=== PATIENT | male | born 1995 | race Caucasian/White ===

== ENCOUNTER 2017-07-18 18:33 | Emergency (ER) | payer OTHER ==
[~2017-07-18 18:33] MED LIST: BUPR-472 PO; TEMA-55 PO
--- NOTE | 2017-07-18 18:44 | ER Report ---
History and Physical Time Seen By MD: 18:44 Hx. of Stated Complaint: cut finger with copper wire short time ago, bleeding controlled, flap lac HPI/ROS CHIEF COMPLAINT: Finger laceration HISTORY OF PRESENT ILLNESS: 21-year-old male patient presents to emergency room with complaint of laceration to the left index finger. Patient states that he was installing a stereo system. He cut his finger with a copper wire. Patient denies any numbness tingling. Denies any difficulty with movement. Patient states his last tetanus shot was in 2015. Allergies: Coded Allergies: No Known Drug Allergies (Unverified , 07/18/17) Home Meds Active Scripts Cephalexin 500 Mg Tab (KEFLEX 500 MG TAB) 500 Mg Tablet, 500 MG PO Q6H, #20 TAB Prov:JASON BEE [employer] 07/18/17 Reported Medications Temazepam (TEMAZEPAM) 30 Mg Capsule, 30 MG PO QHS, CAPSULE 03/02/17 Bupropion Hcl (WELLBUTRIN XL) 150 Mg Tab.er.24h, 150 MG PO QDAY, TAB 03/02/17 Past Medical/Surgical History Patient has a past medical history of migraines, depression. Patient has surgical history of tonsillectomy. Reviewed Nurses Notes: Yes Hx Substance Use Disorder: No Hx Alcohol Use: No Constitutional Vital Sign - Last 24 Hours 07/18/17 07/18/17 07/18/17 07/18/17 18:33 18:35 18:36 18:45 Temp 98.3 Pulse ??? 74 Resp 20 B/P (MAP) 139/82 (101) 139/82 122/102 (109) Pulse Ox 97 O2 Delivery Room Air 07/18/17 07/18/17 07/18/17 19:00 19:03 19:15 Pulse 76 77 B/P (MAP) 121/69 (86) 128/71 (90) Pulse Ox 94 95 Physical Exam General appearance: Alert no distress. Respiratory: Chest is non tender, lungs are clear to auscultation. Cardiac: Regular rate and rhythm. Skin: Patient has a one similar laceration to the pad of the left index finger. Patient has good strength, does appear to go into the subcutaneous tissue. DIFFERENTIAL DIAGNOSIS: After history and physical exam differential diagnosis was considered for laceration. Medical Decision Making ED Course/Re-evaluation ED Course Patient is admitted to and examined, history and physical were obtained. Differential diagnoses were considered. I examination patient has a one similar laceration to the left index finger. The area was anesthetized, cleaned and repaired described below. Care instructions were given with patient. We will go ahead and discharge patient home at this time. He is to follow-up with his primary care provider in 7 days to have the sutures removed. Patient verbalized understanding and agreement with plan. Procedure: Laceration repair. Verbal consent was obtained from the patient. The 1 cm laceration on the left index finger was anesthetized in the usual fashion. The wound was scrubbed, draped and explored to its base with a gloved finger. There were no deep structures involved. No tendon injury was identified. The wound was repaired with 4 simple interrupted sutures using 4-0 Ethilon material. The wound repair was simple. The procedure was performed by myself. Decision to Disposition Date: Jul 18, 2017 Decision to Disposition Time: 19:24 Depart Departure Latest Vital Signs Vital Signs Date Time Temp Pulse Resp B/P (MAP) Pulse Ox O2 Delivery O2 Flow Rate FiO2 07/18/17 19:15 77 128/71 (90) 95 07/18/17 18:36 98.3 20 Room Air Impression: Primary Impression: Laceration Condition: Improved Disposition: HOME OR SELF-CARE New Scripts Cephalexin 500 Mg Tab (KEFLEX 500 MG TAB) 500 Mg Tablet 500 MG PO Q6H, #20 TAB Prov: JASON BEE 07/18/17 Patient Instructions: Finger Laceration (ED) Additional Instructions: Keep wound dry for 48 hours. Follow up with your primary care provider in the next 7-10 days to have sutures removed. Monitor for signs of infection; redness, swelling, heat, discharge, increasing pain or red streaking. Take Tylenol or Ibuprofen as needed for pain. Return to the ER with any concerns. You may change dressing as needed. JASON BEE Jul 18, 2017 18:44
[2017-07-18 19:15] VITALS: BP 128/71
[2017-07-18] MEDS ORDERED: CEPH500T7 PO (19:24)
== END 2017-07-18 19:32 | disposition home or self-care (01) ==
LOC: ER 18:51
DX: S61.211A Laceration without foreign body of left index finger without damage to nail, initial encounter (principal)
CPT/HCPCS: 99282

== ENCOUNTER 2017-07-21 17:50 | Emergency (ER) | payer OTHER ==
[~2017-07-21 17:50] MED LIST changes: +CEPH500T7 PO
--- NOTE | 2017-07-21 18:00 | ER Report ---
History and Physical Time Seen By MD: 17:59 Hx. of Stated Complaint: Stitches here a couple of days ago. Pain worse. Bleeding off and on. Stitches intact. No bleeding noted at this time. HPI/ROS CHIEF COMPLAINT: Finger pain HISTORY OF PRESENT ILLNESS: 21-year-old male patient presents to the emergency room with complaint of left index finger pain. Patient was seen here in the emergency room 2 days ago and had sutures placed at that time. Patient states that he has been having swelling, increasing pain to the finger. He states he is taken ibuprofen for this with no improvement. Patient denies having any fevers or chills. Patient denies having any drainage, although he states that he has had some blood. Patient states he's been taking his Keflex as prescribed. Allergies: Coded Allergies: No Known Drug Allergies (Unverified , 07/21/17) Home Meds Active Scripts Diclofenac Sodium (DICLOFENAC SODIUM) 75 Mg Tablet.dr, 75 MG PO BID, #19 TAB Prov:JASON BEE 07/21/17 Sulfamethoxazole/Trimet 800-160 Mg Tab (BACTRIM DS TABLET) 1 Each Tablet, 1 TAB PO Q12H, #12 TAB Prov:JASON BEEP 07/21/17 Cephalexin 500 Mg Tab (KEFLEX 500 MG TAB) 500 Mg Tablet, 500 MG PO Q6H, #20 TAB Prov:JASON BEEP 07/18/17 Reported Medications Temazepam (TEMAZEPAM) 30 Mg Capsule, 30 MG PO QHS, CAPSULE 03/02/17 Bupropion Hcl (WELLBUTRIN XL) 150 Mg Tab.er.24h, 150 MG PO QDAY, TAB 03/02/17 Past Medical/Surgical History Patient has a past medical history of migraines, depression. Patient has a surgical history of tonsillectomy. Reviewed Nurses Notes: Yes Hx Substance Use Disorder: No Hx Alcohol Use: No Constitutional Vital Sign - Last 24 Hours 07/21/17 07/21/17 17:55 18:35 Temp 98.7 Pulse 112 95 Resp 16 16 B/P (MAP) 126/80 115/59 (77) Pulse Ox 95 95 O2 Delivery Room Air Physical Exam General appearance: Alert no distress. Respiratory: Chest is non tender, lungs are clear to auscultation. Cardiac: Regular rate and rhythm. Skin: Patient has mild erythema to the tip of the left index finger, tender to touch, there is no purulent drainage, is no erythema around the wound. DIFFERENTIAL DIAGNOSIS: After history and physical exam differential diagnosis was considered for cellulitis, wound infection. Medical Decision Making ED Course/Re-evaluation ED Course Patient was admitted exam room, history and physical were obtained. Differential diagnoses were considered. On examination patient has tenderness to the left index finger, there is mild erythema. Is not warm to the touch. A digital block was performed to alleviate some discomfort, using 2.5 cc of 1% lidocaine and 2.5 cc of 0.5% Marcaine. Patient states he had significant improvement in his discomfort. Due to the likelihood of an infection we will go ahead and change the antibiotics to Bactrim, one tab twice a day for 7 days. I discussed with patient who verbalized understanding and agreement. Patient is to follow-up in 5-8 days to have sutures removed. Patient is return if condition worsens. Decision to Disposition Date: Jul 21, 2017 Decision to Disposition Time: 18:26 Depart Departure Latest Vital Signs Vital Signs Date Time Temp Pulse Resp B/P (MAP) Pulse Ox O2 Delivery O2 Flow Rate FiO2 07/21/17 18:35 95 16 115/59 (77) 95 07/21/17 17:55 98.7 Room Air Impression: Primary Impression: Finger infection Condition: Improved Disposition: HOME OR SELF-CARE New Scripts Diclofenac Sodium (DICLOFENAC SODIUM) 75 Mg Tablet. 75 MG PO BID, #19 TAB Prov: JASON BEE 07/21/17 Sulfamethoxazole/Trimet 800-160 Mg Tab (BACTRIM DS TABLET) 1 Each Tablet 1 TAB PO Q12H, #12 TAB Prov: JASON BEE 07/21/17 Patient Instructions: Wound Infection (ED) Additional Instructions: Take the new antibiotics as directed. Stop taking the Keflex. Limit activity by pain. Take the Diclofenac as needed for pain. You may take Tylenol as needed for pain, but no Ibuprofen or Aleve. Return to the ER if condition worsens. Follow up with your primary care provider to have the sutures removed as previously directed. JASON BEE Jul 21, 2017 18:00
[2017-07-21] MEDS ORDERED: DICLOFENAC SOD 75 MG TABCR PO ONE (18:05)
[2017-07-21] MEDS ORDERED: TRIMETHOPRIM/SULFA 160-800 TH 2 TAB/BOTTLE PO ONE (18:15)
[2017-07-21] MEDS ORDERED: SULF-198 PO (18:23)
[2017-07-21] MEDS ORDERED: DICL-195 PO (18:23)
[2017-07-21 18:35] VITALS: BP 115/59
== END 2017-07-21 18:37 | disposition home or self-care (01) ==
LOC: ER 17:54
DX: L08.9 Local infection of the skin and subcutaneous tissue, unspecified (principal)
CPT/HCPCS: 99282

== ENCOUNTER 2017-07-30 16:49 | Emergency (ER) | payer OTHER ==
[~2017-07-30 16:49] MED LIST changes: +DICL-195 PO; +SULF-198 PO
[2017-07-30 16:52] VITALS: BP 130/76
--- NOTE | 2017-07-30 17:26 | ER Report ---
History and Physical Time Seen By MD: 16:52 Hx. of Stated Complaint: Here for suture removal HPI/ROS CHIEF COMPLAINT: Suture removal HISTORY OF PRESENT ILLNESS: 21-year-old male presents with 4 sutures in left index finger placed 9-10 days ago here denies pain redness discharge or dehiscence or other problems. He is here for suture removal. No other concerns or complaints today. REVIEW OF SYSTEMS: Respiratory: No cough, no dyspnea. Cardiovascular: No chest pain, no palpitations. Gastrointestinal: No vomiting, no abdominal pain. Musculoskeletal: No back pain. Allergies: Coded Allergies: No Known Drug Allergies (Unverified , 07/30/17) Home Meds Active Scripts Diclofenac Sodium (DICLOFENAC SODIUM) 75 Mg Tablet.dr, 75 MG PO BID, #19 TAB Prov:JASON BEE [facility] 07/21/17 Sulfamethoxazole/Trimet 800-160 Mg Tab (BACTRIM DS TABLET) 1 Each Tablet, 1 TAB PO Q12H, #12 TAB Prov:JASON BEE [facility] 07/21/17 Reported Medications Temazepam (TEMAZEPAM) 30 Mg Capsule, 30 MG PO QHS, CAPSULE 03/02/17 Bupropion Hcl (WELLBUTRIN XL) 150 Mg Tab.er.24h, 150 MG PO QDAY, TAB 03/02/17 Discontinued Scripts Cephalexin 500 Mg Tab (KEFLEX 500 MG TAB) 500 Mg Tablet, 500 MG PO Q6H, #20 TAB Prov:KUSUM BEEE [facility] 07/18/17 Hx Substance Use Disorder: No Hx Alcohol Use: No Constitutional Vital Sign - Last 24 Hours 07/30/17 16:52 Temp 98.3 Pulse 76 Resp 16 B/P (MAP) 130/76 Pulse Ox 96 O2 Delivery Room Air Physical Exam General Appearance: The patient is alert, has no immediate need for airway protection and no current signs of toxicity. No acute distress Eyes: Pupils equal and round no injection. Respiratory: Chest is non tender, lungs are clear to auscultation. Cardiac: regular rate and rhythm [ ] Gastrointestinal: Abdomen is soft and non tender, no masses, bowel sounds normal. Musculoskeletal: Neck: Neck is supple and non tender. Extremities have full range of motion and are non tender. Skin: No rashes or lesions. 4 sutures intact left index fingertip wound appears healing well and no signs of infection or abscess. DIFFERENTIAL DIAGNOSIS: After history and physical exam differential diagnosis was considered for suture removal without wound dehiscence Medical Decision Making ED Course/Re-evaluation ED Course 4 sutures were removed atraumatically. Procedure well-tolerated Decision to Disposition Date: Jul 30, 2017 Decision to Disposition Time: 17:05 Depart Departure Latest Vital Signs Vital Signs Date Time Temp Pulse Resp B/P (MAP) Pulse Ox O2 Delivery O2 Flow Rate FiO2 07/30/17 16:52 98.3 76 16 130/76 96 Room Air Impression: Primary Impression: Encounter for removal of sutures Condition: Improved Disposition: HOME OR SELF-CARE Departure Forms: Medications Reconciliation, Patient Portal Information, ER Transition Record Patient Instructions: Stitches Removal (ED) DILMA BURNS MD Jul 30, 2017 17:26
== END 2017-07-30 17:14 | disposition home or self-care (01) ==
LOC: ER 16:56
DX: S61.211D Laceration without foreign body of left index finger without damage to nail, subsequent encounter (principal)
CPT/HCPCS: 99281